=== PATIENT | male | born 1975 | race Caucasian/White ===

== ENCOUNTER 2022-11-22 04:49 | Emergency (ER) | payer MEDICAID ==
[~2022-11-22] VITALS: Ht 188 cm; Wt 108.9 kg
--- NOTE | 2022-11-22 05:15 | NUR ---
[id number] FROM LONG-TERM. PT HAS FENTANYL OVERDOSE, PT WAS GIVEN 4 DOSE NARCAN NASAL AND 4 DOSE OF NARCAN IJ. PER MOCCASIN SEWER, CPR WAS INITIATED BY HIS FRIENDS 30MINS DOG OBEDIENCE INSTRUCTOR UNTIL RETURN OF SPONTANEOUS CIRCULATION. PATIENT IS AAOX4 IN ER. ABLE TO MAKE NEEDS KNOWN. AMBULATORY,. -CP, -SOB, SATS 97% IN RA
--- NOTE | 2022-11-22 05:23 | NUR ---
URINE SPECIMEN SENT TO LAB
--- NOTE | 2022-11-22 05:29 | NUR ---
BLOOD COLLECTED SENT TO LAB
[2022-11-22 05:35] LABS: BASOPHILS % (AUTO) 0.5 % (0.0-2.0); EOSINOPHILS % (AUTO) 0.2 % (0.0-6.0); HEMATOCRIT 39 % (39-51); HEMOGLOBIN 13.4 g/dL (13.5-17.5); MEAN CORPUSCULAR HGB CONC 34 g/dl (31.0-36.0); MEAN CORPUSCULAR VOLUME 91 fL (80-96); MONOCYTES # (AUTO) 0.5 K/uL (0.1-1.30); MONOCYTES % (AUTO) 8.4 % (2.0-12.0); NEUTROPHILS # (AUTO) 4.3 K/uL (1.8-8.9); NEUTROPHILS % (AUTO) 73.9 % (43.0-81.0); PLATELET COUNT (AUTO) 317 K/uL (150-450); WHITE BLOOD COUNT (AUTO) 5.8 K/uL (4.3-11.0)
--- NOTE | 2022-11-22 05:43 | NUR ---
PLS CALL FOR PATIENT PRESS SUPERVISOR- ROSA ISELA PARNELL [phone]
[2022-11-22 05:45] LABS: BILIRUBIN,URINE NEGATIVE (NEGATIVE); COLOR,URINE YELLOW (YELLOW); LEUKOCYTE ESTERASE ,URINE NEGATIVE (NEGATIVE); NITRITE, URINE NEGATIVE (NEGATIVE); PROTEIN,URINE TRACE mg/dl (NEGATIVE); UGLUCOSE NEGATIVE (NEGATIVE); UROBILINOGEN,URINE 0.2 EU/dL (0.2)
[2022-11-22 05:53] LABS: ALANINE AMINOTRANSFERASE 49 U/L (12-78); ALBUMIN 3.5 g/dL (3.4-5.0); ALCOHOL, BLOOD < 3 mg/dL (0-0); ALKALINE PHOSPHATASE 96 U/L (46-116); ASPARTATE AMINOTRANSFERASE 37 U/L (15-37); BILIRUBIN,DIRECT 0.2 mg/dL (0.0-0.2); BILIRUBIN,TOTAL 0.5 mg/dL (0.2-1.0); CALCIUM, SERUM 8.6 mg/dL (8.5-10.1); CARBON DIOXIDE 25 mmol/L (21-32); CHLORIDE 107 mmol/L (98-107); CREATININE 1.1 mg/dL (0.6-1.3); GLUCOSE 135 mg/dL (74-106); POTASSIUM 3.6 mmol/L (3.5-5.1); SODIUM SERUM 141 mmol/L (136-145); TOTAL PROTEIN, SERUM 6.6 g/dL (6.4-8.2); UREA NITROGEN, BLOOD 11 mg/dL (7-18)
--- NOTE | 2022-11-22 07:52 | NUR ---
pt went to the bathroom, asked for food. Pt was provided food.
[2022-11-22 09:32] VITALS: BP 120/83
--- NOTE | 2022-11-22 09:40 | NUR ---
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 at present he is in [place]. he said just give him a ride
== END 2022-11-22 09:46 | disposition home or self-care (01) ==
LOC: ER 04:56
DX: R40.4 Transient alteration of awareness (principal); T40.411A Poisoning by fentanyl or fentanyl analogs, accidental (unintentional), initial encounter; Z88.8 Allergy status to other drugs, medicaments and biological substances; Y92.89 Other specified places as the place of occurrence of the external cause
CPT/HCPCS: 36415; 80048-TC; 80076-TC; 85025-TC; G0480

== ENCOUNTER 2022-12-10 11:01 | Emergency (ER) | payer MEDICAID ==
[~2022-12-10] VITALS: Ht 182.9 cm; Wt 97.5 kg
--- NOTE | 2022-12-10 12:09 | NUR ---
pt came in walking. complaining of ear pain and pain while urinating
[2022-12-10] MEDS ORDERED: DOXY100T2 PO (13:17)
[2022-12-10] MEDS ORDERED: CIPR7.5D9 EACH EAR (13:17)
[2022-12-10] MEDS ORDERED: CEFTRIAXONE 1 G VIAL ONE (13:27)
[2022-12-10] MEDS ORDERED: LIDOCAINE /MPF 1% VIAL 5 ML VIAL ONE (13:29)
[2022-12-10] MEDS ORDERED: CEFTRIAXONE 1 G VIAL IM ONE (13:30)
--- NOTE | 2022-12-10 13:37 | NUR ---
Patient discharged to home in stable condition. Written and verbal after care instructions given. Patient verbalizes understanding of instruction.
--- NOTE | 2022-12-10 13:37 | NUR ---
Given IM antibiotics
[2022-12-10 13:38] VITALS: BP 116/73
[2022-12-10 13:45] LABS: BILIRUBIN,URINE 1+ (NEGATIVE); COLOR,URINE DARK YELLOW (YELLOW); PROTEIN,URINE NEGATIVE (NEGATIVE); UGLUCOSE NEGATIVE (NEGATIVE)
[2022-12-10 13:46] LABS: LEUKOCYTE ESTERASE ,URINE NEGATIVE (NEGATIVE); NITRITE, URINE NEGATIVE (NEGATIVE)
[2022-12-10 13:50] LABS: BACTERIA,URINE Rare /HPF (None Seen); RBC,URINE 0-2 /HPF (0-2); SQUAMOUS EPITHELIAL CELL,UR Few /HPF (None Seen)
== END 2022-12-10 13:38 | disposition home or self-care (01) ==
LOC: ER 11:03
DX: H60.92 Unspecified otitis externa, left ear (principal); R30.0 Dysuria; Z79.899 Other long term (current) drug therapy; Z88.1 Allergy status to other antibiotic agents
CPT/HCPCS: 99283; 96372; 81001; 87491; 87591; J0696; J3490

== ENCOUNTER 2023-12-18 01:41 | Emergency (ER) | payer MEDICAID ==
[~2023-12-18] VITALS: Ht 182.9 cm; Wt 97.5 kg
[~2023-12-18 01:41] MED LIST: CIPR7.5D9 EACH EAR; DOXY100T2 PO
[2023-12-18] MEDS ORDERED: HYDROCODONE/APAP 5/325MG TABLET ONE (02:58)
[2023-12-18] MEDS: HYDROCODONE/APAP 5/325MG TABLET PO ONE (02:58)
[2023-12-18] MEDS ORDERED: ACET-2605 PO (04:17)
[2023-12-18] MEDS ORDERED: IBUP-1490 PO (04:17)
[2023-12-18 05:44] VITALS: BP 135/79; TEMP 97.8; O2SAT 98
== END 2023-12-18 05:45 | disposition left against medical advice (07) ==
LOC: ER 01:42
DX: S62.115A Nondisplaced fracture of triquetrum [cuneiform] bone, left wrist, initial encounter for closed fracture (principal); S01.81XA Laceration without foreign body of other part of head, initial encounter; S80.12XA Contusion of left lower leg, initial encounter; R07.81 Pleurodynia; F31.9 Bipolar disorder, unspecified; Z88.8 Allergy status to other drugs, medicaments and biological substances; F19.10 Other psychoactive substance abuse, uncomplicated; F17.200 Nicotine dependence, unspecified, uncomplicated; V00.148A Other scooter (nonmotorized) accident, initial encounter; Y93.89 Activity, other specified; Y92.488 Other paved roadways as the place of occurrence of the external cause; Y99.8 Other external cause status
CPT/HCPCS: 71100-TC; 73590-TC